=== PATIENT | male | born 1985 | race Caucasian/White ===

== ENCOUNTER 2018-04-22 21:51 | Emergency (ER) | payer OTHER ==
[2018-04-22] MEDS ORDERED: DEXAMETHASONE 10 MG/ML VIAL IVP STA (22:15)
[2018-04-22] MEDS ORDERED: EPINEPHrine 1 MG/ML AMP IM STA (22:15)
[2018-04-22] MEDS ORDERED: RACEPINEPHRINE 2.25% NEB INH STA (22:15)
[2018-04-22] MEDS ORDERED: diphenhydrAMINE INJ 50 MG/ML VIAL IVP STA (22:15)
[2018-04-22] MEDS ORDERED: CETIRIZINE 10 MG TABLET PO STA (22:16)
--- NOTE | 2018-04-22 22:16 | ED Physician Documentation ---
PD HPI HEENT - Stated complaint Stated Complaint: THROAT PX/POSS ALLERGIC REACTION - Chief complaint Chief Complaint: Allergic Rx - History obtained from History obtained from: Patient - History of Present Illness Timing - onset: How many minutes ago (30) Timing - duration: Minutes (30) Timing - details: Abrupt onset (he had some shrimp for dinner and then went out for a run. During that he developed some itching and feeling of swelling of lips , and the symptoms have increased. Came to ED after taking a Benadryl. No prior similar and eats shrimp fairly often. He is not aware of any smoke or unusual odors in the air while he was running outside.) Location: Throat Worsens: Swalllowing Associated symptoms: Facial swelling. No: Fever, Congestion, Swollen nodes Similar symptoms before: Has not had sx before Recently seen: Not recently seen Review of Systems Constitutional: denies: Fever Nose: denies: Rhinorrhea / runny nose, Congestion Cardiac: denies: Chest pain / pressure, Palpitations Respiratory: reports: Dyspnea, Wheezing. denies: Cough GI: denies: Abdominal Pain, Nausea, Vomiting, Diarrhea Skin: reports: Rash Neurologic: denies: Near syncope (but is feeling somewhat lightheaded) PD PAST MEDICAL HISTORY - Past Medical History Past Medical History: No - Past Surgical History Past Surgical History: No - Present Medications Home Medications: Ambulatory Orders Medication Instructions Recorded Confirmed Cetirizine [ZyrTEC] 10 mg PO DAILY #15 tablet 04/22/18 Dexamethasone [Decadron] 4 mg PO DAILY #5 tablet 04/22/18 EPINEPHrine [Epinephrine] 0.3 mg IJ ONCE PRN #1 auto.injct 04/22/18 - Allergies Allergies/Adverse Reactions: Allergies Allergy/AdvReac Type Severity Reaction Status Date / Time No Known Drug Allergies Allergy Verified 04/22/18 22:04 - Social History Does the pt smoke?: No Smoking Status: Never smoker Does the pt drink ETOH?: Yes Does the pt have substance abuse?: No - Immunizations Immunizations are current?: Yes PD ED PE NORMAL - Vitals Vital signs reviewed: Yes - General General: Alert and oriented X 3, Well developed/nourished, Other (has some throat clearing but normal voice. Mild edema of the uvula. Lips with swelling. Tongue normal. ) - HEENT HEENT: Ears normal. No: Pharynx benign - Neck Neck: Supple, no meningeal sign, No adenopathy - Cardiac Cardiac: RRR, No murmur - Respiratory Respiratory: Clear bilaterally - Abdomen Abdomen: Soft, Non tender - Derm Derm: Normal color, Warm and dry, Other (hives noted diffusely, with some swelling of hands. ) - Extremities Extremities: Normal ROM s pain - Neuro Neuro: Alert and oriented X 3, No motor deficit, Normal speech Results - Vitals Vitals: Vital Signs - 24 hr 04/22/18 04/22/18 04/22/18 22:02 22:28 22:30 Temperature 36.8 C Heart Rate 71 69 66 Respiratory 18 14 16 Rate Blood Pressure 143/96 H 132/92 H O2 Saturation 99 99 04/22/18 04/23/18 23:04 00:00 Temperature 36.4 C L Heart Rate 67 78 Respiratory 11 L 18 Rate Blood Pressure 124/80 112/64 O2 Saturation 100 100 Oxygen O2 Source Room air PD MEDICAL DECISION MAKING - ED course Complexity details: considered differential (improved well after meds. Watched for 1 1/2 hours after without any returning symptoms), d/w patient Departure - Departure Disposition: 01 Home, Self Care Clinical Impression: Acute anaphylaxis Qualifiers: Encounter type: initial encounter Qualified Code(s): T78.2XXA - Anaphylactic shock, unspecified, initial encounter Condition: Stable Record reviewed to determine appropriate education?: Yes Instructions: ED Allergic Reaction General Other Follow-Up: Sheila Abrams MD [Primary Care Provider] - Prescriptions: Cetirizine [ZyrTEC] 10 mg PO DAILY #15 tablet Dexamethasone [Decadron] 4 mg PO DAILY #5 tablet EPINEPHrine [Epinephrine] 0.3 mg IJ ONCE PRN #1 auto.injct PRN Reason: Anaphylaxis Comments: Once the allergic reaction is diminishing, typically will continue away and stay away. However sometimes it will return mildly and persist for a day or 2. If you do notice some itching or swelling, then repeat doses of Benadryl every 6 hours as needed and continue the steroid and a longer anti-a histamine for 3-5 days. If you have no further symptoms then you do not necessarily need to continue these medicines. For now I would assume you are allergic to shrimp and shellfish. Once you are well past the allergic reaction for several weeks, you could get allergy testing done more specifically to see if that is the actual cause so he would know dietarily what you need to avoid or can eat in the future. Return if you have significant symptoms return. Consider carrying an EpiPen with you in case you have a similar reaction in the future and need to treat it quickly. Discharge Date/Time: 04/23/18 00:05
[2018-04-22] MEDS ORDERED: SODIUM CHLORIDE 0.9% 1,000 ML IV ONE (22:19)
[2018-04-23 00:05] VITALS: BP 112/64
== END 2018-04-23 00:05 | disposition home or self-care (01) ==
LOC: ED 21:51
DX: T78.02XA Anaphylactic reaction due to shellfish (crustaceans), initial encounter (principal)
CPT/HCPCS: 94640; 96361; 96372; 96374; 96375; 99283; A9270; J1200